=== PATIENT | male | born 2000 | race Caucasian/White ===

== ENCOUNTER 2019-05-01 23:01 | Emergency (ER) | payer OTHER ==
[~2019-05-01] VITALS: Ht 182.9 cm; Wt 79.4 kg
[2019-05-02] MEDS ORDERED: MOBIC15 MG PO (00:15)
[2019-05-02] MEDS ORDERED: CYCLOBENZAPRINE5 MG PO (00:15)
[2019-05-02 00:40] VITALS: BP 124/73
== END 2019-05-02 00:40 | disposition home or self-care (01) ==
LOC: ER 23:01
DX: S80.812A Abrasion, left lower leg, initial encounter (principal); V49.49XA Driver injured in collision with other motor vehicles in traffic accident, initial encounter; Y93.89 Activity, other specified; Y92.89 Other specified places as the place of occurrence of the external cause; Y99.8 Other external cause status